=== PATIENT | male | born 1955 | race Caucasian/White ===

== ENCOUNTER 2021-03-14 16:42 | Inpatient (IN) | payer BC, MEDICARE ==
[~2021-03-14] VITALS: Ht 172.7 cm; Wt 83.6 kg
[2021-03-14] MEDS ORDERED: DAPTOMYCIN 500 MG in SODIUM CHLORIDE 0.9% 100 ML IV ONE (17:30)
[2021-03-14] MEDS ORDERED: SODIUM CHLORIDE FLUSH 10ML SYR IVF ONE (17:30)
--- NOTE | 2021-03-14 17:40 | NUR ---
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 PT CONNECTED TO MONITORING. CALL LIGHT IN REACH.
--- NOTE | 2021-03-14 17:45 | NUR ---
[facility] REQUESTED FROM PHARMACY.
[2021-03-14 17:47] LABS: BASOPHILS % (AUTO) 0 % (0-1); EOSINOPHILS % (AUTO) 1 % (1-7); LYMPHOCYTES % (AUTO) 18 % (22-44); MEAN CORPUSCULAR HEMOGLOBIN 33.3 pg (27.5-34.5); MEAN CORPUSCULAR HGB CONC 34.3 g/dL (33.2-36.2); MEAN PLATELET VOLUME 7.7 fL (7.4-10.4); MONOCYTES % (AUTO) 14 % (2-9); NEUTROPHILS % (AUTO) 67 % (42-75); PLATELET COUNT 179 x10^3/uL (130-400); RED BLOOD COUNT 4.65 x10^6/uL (4.38-5.82); RED CELL DISTRIBUTION WIDTH 13.3 % (9.4-14.8)
[2021-03-14 17:56] LABS: ALBUMIN 3.5 g/dL (3.4-5.0); ANION GAP 10 mmol/L (5-15); CALCIUM 8.7 mg/dL (8.5-10.1); CHLORIDE 103 mmol/L (98-107)
--- NOTE | 2021-03-14 18:44 | NUR ---
MED RECEIVED FROM PHARMACY. IV ABX STARTED PER SEP. 2 SETS BLOOD CX COLLECTED PRIOR TO ADMIN. ERMD AT BEDSIDE TO UPDATE PT ON POC.
--- NOTE | 2021-03-14 18:49 | NUR ---
REPORT FROM THAO DUNN.
[2021-03-14] MEDS ORDERED: OXYcodone IR 5MG TABLET PO PRN (19:30)
[2021-03-14] MEDS ORDERED: POLYETHYLENE GLYCOL 17 GM PACKET PO PRN (19:30)
[2021-03-14] MEDS ORDERED: KETOROLAC 30 MG/1 ML IV PRN (19:30)
[2021-03-14] MEDS ORDERED: GUAIFENESIN/DM 200-20MG, 10ML UDC PO PRN (19:30)
[2021-03-14] MEDS ORDERED: SODIUM CHLORIDE FLUSH 10ML SYR IVF PRN (19:30)
[2021-03-14] MEDS ORDERED: LABETALOL 5MG/ML, 20ML IVPush PRN (19:30)
[2021-03-14] MEDS ORDERED: PHARMACY MAY ADJ FOR RENAL FX MC PRN (19:30)
[2021-03-14] MEDS ORDERED: ONDANSETRON 2MG/ML, 2ML IVPush PRN (19:30)
[2021-03-14] MEDS ORDERED: HYDROmorphone 2 MG/ML, 1ML IVPush PRN (19:30)
--- NOTE | 2021-03-14 19:46 | NUR ---
REPORT TO LEONCIO DUNN.
[2021-03-14] MEDS ORDERED: CASIRIVIMAB 600 MG, IMDEVIMAB (REGN10987) 600 MG in SODIUM CHLORIDE 0.9% 250 ML IVPB ONE (20:30)
[2021-03-14] MEDS ORDERED: FILTER 0.22 MICRON IV ONE (20:30)
[2021-03-14] MEDS ORDERED: MELATONIN 5 MG TABLET PO PRN (21:00)
[2021-03-14] MEDS ORDERED: acyclovir PO (22:03)
[2021-03-14] MEDS ORDERED: eliquis (22:03)
[2021-03-14] MEDS ORDERED: gabapentin PO (22:03)
[2021-03-14] MEDS: FAMOTIDINE 20 MG TABLET PO SCH (22:16)
[2021-03-14] MEDS: ASCORBIC ACID 500 MG TABLET PO SCH (22:16)
[2021-03-14] MEDS: ENOXAPARIN 40 MG/0.4 ML SQ SCH (22:17)
[2021-03-14 22:28] VITALS: BP 107/70
[2021-03-14] MEDS: ACETAMINOPHEN 325 MG TABLET PO PRN (22:50)
[2021-03-15 00:11] VITALS: BP 96/60
[2021-03-15 05:37] LABS: BASOPHILS % (AUTO) 0 % (0-1); EOSINOPHILS % (AUTO) 3 % (1-7); LYMPHOCYTES % (AUTO) 36 % (22-44); MEAN CORPUSCULAR HEMOGLOBIN 33.4 pg (27.5-34.5); MEAN CORPUSCULAR HGB CONC 34.2 g/dL (33.2-36.2); MEAN PLATELET VOLUME 8.3 fL (7.4-10.4); MONOCYTES % (AUTO) 18 % (2-9); NEUTROPHILS % (AUTO) 42 % (42-75); PLATELET COUNT 167 x10^3/uL (130-400); RED BLOOD COUNT 4.36 x10^6/uL (4.38-5.82); RED CELL DISTRIBUTION WIDTH 13.1 % (9.4-14.8)
[2021-03-15 05:40] LABS: ANION GAP 6 mmol/L (5-15); CALCIUM 8.1 mg/dL (8.5-10.1); CHLORIDE 104 mmol/L (98-107); CREATININE 1.19 mg/dL (0.7-1.3)
[2021-03-15 08:17] VITALS: BP 108/62
[2021-03-15 09:05] VITALS: BP 112/72
[2021-03-15] MEDS: ZINC SULFATE 220 MG CAPSULE PO SCH (09:27)
[2021-03-15] MEDS: ASCORBIC ACID 500 MG TABLET PO SCH ×2 (09:27→21:41)
[2021-03-15] MEDS: FAMOTIDINE 20 MG TABLET PO SCH ×2 (09:27→21:41)
[2021-03-15] MEDS: ACETAMINOPHEN 325 MG TABLET PO PRN ×2 (09:45→21:41)
[2021-03-15 15:49] VITALS: BP 101/64
[2021-03-15] MEDS: DAPTOMYCIN 500 MG in SODIUM CHLORIDE 0.9% 100 ML IV SCH (18:22)
[2021-03-15] MEDS: ENOXAPARIN 40 MG/0.4 ML SQ SCH (19:08)
[2021-03-15 19:09] VITALS: BP 104/63
[2021-03-16 01:16] VITALS: BP 101/63
[2021-03-16 06:51] LABS: ANION GAP 3 mmol/L (5-15); CALCIUM 8.4 mg/dL (8.5-10.1); CHLORIDE 106 mmol/L (98-107); CREATININE 1.02 mg/dL (0.7-1.3)
[2021-03-16 07:36] VITALS: BP 104/68
[2021-03-16] MEDS: FAMOTIDINE 20 MG TABLET PO SCH ×2 (08:46→20:34)
[2021-03-16] MEDS: ASCORBIC ACID 500 MG TABLET PO SCH ×2 (08:46→20:34)
[2021-03-16] MEDS: ZINC SULFATE 220 MG CAPSULE PO SCH (08:46)
[2021-03-16 13:03] VITALS: BP 111/72
[2021-03-16 18:18] VITALS: BP 113/73
[2021-03-16] MEDS: DAPTOMYCIN 500 MG in SODIUM CHLORIDE 0.9% 100 ML IV SCH (18:34)
[2021-03-16] MEDS: ENOXAPARIN 40 MG/0.4 ML SQ SCH (18:35)
[2021-03-16 20:36] VITALS: BP 119/73
[2021-03-17 02:37] VITALS: BP 109/64
[2021-03-17 02:52] VITALS: BP 100/63
[2021-03-17 08:26] VITALS: BP 107/64
[2021-03-17] MEDS: ZINC SULFATE 220 MG CAPSULE PO SCH (09:09)
[2021-03-17] MEDS: FAMOTIDINE 20 MG TABLET PO SCH (09:09)
[2021-03-17] MEDS: ASCORBIC ACID 500 MG TABLET PO SCH (09:10)
[2021-03-17 12:47] VITALS: BP 115/74
[2021-03-17] MEDS ORDERED: DAPTOMYCIN 500 MG in SODIUM CHLORIDE 0.9% 100 ML IVPB SCH (13:00)
[2021-03-17 14:03] LABS: ALANINE AMINOTRANSFERASE 21 U/L (12-78); ALBUMIN 3.3 g/dL (3.4-5.0); ANION GAP 7 mmol/L (5-15); CALCIUM 8.3 mg/dL (8.5-10.1); CHLORIDE 105 mmol/L (98-107); CREATININE 1.18 mg/dL (0.7-1.3)
[2021-03-17] MEDS ORDERED: ZINC220C8 PO (14:03)
[2021-03-17] MEDS ORDERED: MELA5TAB14 PO (14:03)
[2021-03-17] MEDS ORDERED: ASCO500T9 PO (14:03)
[2021-03-17] MEDS ORDERED: THIA100T67 PO (14:03)
[2021-03-17 14:05] LABS: ALKALINE PHOSPHATASE 60 U/L (45-117); BILIRUBIN,TOTAL 0.6 mg/dL (0.2-1.0); CREATINE KINASE, TOTAL 76 U/L (39-308); TOTAL PROTEIN 7.4 g/dL (6.4-8.2)
[2021-03-17] MEDS ORDERED: CHOL10003 PO (14:05)
[2021-03-17] MEDS ORDERED: eliquis PO (15:04)
[2021-03-18] MEDS ORDERED: CHOLECALCIFEROL 1,000 UNIT TABLET PO SCH (09:00)
== END 2021-03-17 19:30 | disposition home or self-care (01) | DRG 689 ==
LOC: ED 19:30 → EDIP 20:36 → 3N 21:35
PROVIDERS: ADMIT Internal Medicine; ATTEND Internal Medicine
DX: N10 Acute pyelonephritis (principal); U07.1 COVID-19; Z16.11 Resistance to penicillins; B95.2 Enterococcus as the cause of diseases classified elsewhere; Z85.51 Personal history of malignant neoplasm of bladder; Z87.440 Personal history of urinary (tract) infections
CPT/HCPCS: 36415; 80048; 80053; 82040; 82550; 83605; 83735; 84145; 85025; 87040; 99285; G0378; J0878; J1650; U0005; M0243; U0003